=== PATIENT | male | born 1995 | race Caucasian/White ===

== ENCOUNTER 2020-10-15 02:02 | Emergency (ER) | payer OTHER ==
[~2020-10-15] VITALS: Ht 180.3 cm; Wt 117.9 kg
[~2020-10-15 02:02] MED LIST: ACETAMINOPHEN-O1 TAB PO
[2020-10-15 02:25] VITALS: BP 115/60
== END 2020-10-15 04:32 | disposition home or self-care (01) ==
LOC: ED 02:02
DX: U07.1 COVID-19 (principal); Z79.899 Other long term (current) drug therapy

== ENCOUNTER → 2022-10-24 | Outpatient (CLI) | payer OTHER ==
[2022-10-24 11:38] LABS: BILIRUBIN Negative (Negative); BLOOD Negative (Negative); CLARITY Clear (Clear); COLOR Yellow (Yellow); GLUCOSE Negative (Negative); KETONE Negative (Negative); LEUKO ESTERASE Negative (Negative); NITRITE Negative (Negative); UROBILINOGEN 0.2 E.U./dl (0.0-1.0)
[2022-10-24 11:39] LABS: BASO % 0.3 % (0.0-1.0); EOS # 0.2 10*3/uL (0.0-0.4); EOS % 2.1 % (1.0-4.0); HEMATOCRIT 47.7 % (42.0-52.0); LYMPH # 3.5 10*3/uL (1.3-4.4); LYMPH % 30.6 % (27.0-41.0); MEAN CELL VOLUME 82.1 fl (80.0-94.0); MEAN CORPUSCULAR HGB 27.9 pg (27.0-31.0); MEAN PLATELET VOLUME 9.9 fl (9.6-12.3); MONO # 0.6 10*3/uL (0.1-1.0); MONO % 5.3 % (3.0-9.0); NEUT % 60.8 % (47.0-73.0); PLATELET COUNT AUTOMATED 289 10*3/uL (130-400); RED BLOOD COUNT 5.81 10*6/uL (4.50-5.90); RED CELL DISTRI WIDTH 12.9 % (0-14.5); RETICULOCYTE % 2.16 % (0.50-2.50); WHITE BLOOD COUNT 11.6 10*3/uL (4.8-10.8)
[2022-10-24 11:49] LABS: BACTERIA TRACE; WBC 0-2 wbc/hpf (0-5)
[2022-10-24 12:27] LABS: ALKALINE PHOSPHATASE 68 U/L (46-116); BUN 14 mg/dl (9-23); CHLORIDE 102 mmol/L (98-107); CHOLESTEROL 278 mg/dL (<200); GAMMA GLUTAMYL TRANSPEPTIDASE 56 U/L (0-73); LDL CHOLESTEROL 168 mg/dL (9-159); POTASSIUM 4.2 mmol/L (3.4-5.1); SGPT/ALT 72 U/L (10-49); T3 UPTAKE 20.8 % (22.4-36.7); THYROXINE (T4) TOTAL 8.5 ug/dl (4.5-10.9); TRIGLYCERIDES 301 mg/dl (<150); URIC ACID 7.3 mg/dL (3.7-9.2)
[2022-10-24 13:48] LABS: VITAMIN D, 25-HYDROXY 36.2 ng/mL (30-100)
[2022-10-27 13:06] LABS: ANTI-DSDNA ANTIBODIES <1 IU/mL (0-9)
== END | disposition home or self-care (01) ==
LOC: LAB 11:07
PROVIDERS: ATTEND Family Medicine
DX: E78.5 Hyperlipidemia, unspecified (principal); R53.83 Other fatigue; R74.8 Abnormal levels of other serum enzymes; R79.89 Other specified abnormal findings of blood chemistry; E55.9 Vitamin D deficiency, unspecified